=== PATIENT | female | born 1990 | race Caucasian/White ===

== ENCOUNTER 2022-10-13 19:43 | Emergency (ER) | payer OTHER ==
[2022-10-13 20:02] VITALS: BP 130/79; PULSE 100; RESP 18; TEMP 98.4; BMI 33.0
== END 2022-10-13 21:40 | disposition home or self-care (01) ==
LOC: JER 19:43 → JERFT 19:43
DX: J06.9 Acute upper respiratory infection, unspecified (principal); B97.89 Other viral agents as the cause of diseases classified elsewhere; R05.1 Acute cough; R50.9 Fever, unspecified; R09.81 Nasal congestion; Z20.822 Contact with and (suspected) exposure to COVID-19
CPT/HCPCS: 0241U-QW; 99283-25